=== PATIENT | male | born 1960 | race African-American/Black ===

== ENCOUNTER 2023-10-09 06:28 | Emergency (ER) | payer SELFPAY ==
[~2023-10-09] VITALS: Ht 182.9 cm; Wt 91.0 kg
[2023-10-09 06:31] VITALS: BP 123/82; PULSE 75; RESP 18; TEMP 98.4; O2SAT 98
== END 2023-10-09 06:50 | disposition left against medical advice (07) ==
LOC: ER 06:43
DX: F98.9 Unspecified behavioral and emotional disorders with onset usually occurring in childhood and adolescence (principal); Z53.21 Procedure and treatment not carried out due to patient leaving prior to being seen by health care provider